=== PATIENT | female | born 1955 | race Caucasian/White ===

== ENCOUNTER 2021-12-11 08:49 | Day surgery (SDC) | payer MEDICARE, MEDICAID ==
[2021-12-11] VITALS (12 sets, daily range): BP systolic 111–129; BP diastolic 67–78; PULSE 73–92; TEMP 98.5
[~2021-12-11] VITALS: Ht 170.2 cm; Wt 93.2 kg
[~2021-12-11 08:49] MED LIST: ACID REDUCER200 MG PO; ADVIL200 MG PO; ALBUTEROL1.25 MG/3 IH; AMLODIPINE5 MG PO; ANTIVERT 12.512.5 MG PO; BACTROBAN 22GM22 GM NAS; BROVANA15 MCG/2 M IH; BUDEPRION XL150 MG PO; CELEXA40 MG PO; CHANTIX 0.5MG0.5 MG PO; CITALOPRAM40 MG PO; COMBIVENT INH14.7 GM IH; CRESTOR20 MG PO; DESYREL 100MG100 MG PO; EXCEDRIN BACK &1 TAB PO; EXCEDRIN1 TAB PO; FORTAMET1000 MG PO; GENTAMICIN180 MG/501 NS; GRALISE600 MG PO; HCTZ/TRIAMTEREN1 TA1 PO; IBUPROFEN200 M1 PO; IPRATROPIUM BROM3 M1 IH; JANUVIA100 MG PO; LANTUS100 U/ML SC; LASIX 40MG TABL40 MG PO; LASIX80 MG PO; LIPITOR 80MG80 MG PO; LORTAB 5/500 501 TAB PO; MAG-OX 400400 MG/TAB PO; MAXZIDE 50 MG-71 TAB PO; MECLIZINE12.5 MG PO; METFORMIN500 MG PO; MICRO-K 1010 MEQ PO; MOTRIN 200200 MG/TAB PO; NIASPAN 500MG500 MG PO; NIASPAN1000 MG PO; NORCO 325 MG-51 TAB PO; NORCO 325 MG-7.1 TAB PO; NOVOLOG 100U100 U/M1 SC; OMEGA 31000 MG PO; OMEPRAZOLE D/R20 MG PO; PHENERGAN W/CO120 ML PO; PLAVIX 75MG TAB75 MG PO; PRINZIDE 12.5 M1 TA1 PO; PROVENTIL0.09 MG/A1 IH; PULMICORT0.5 MG/2 M IH; PULMICORT90 MCG/Act IH; RT ALBUTER2.5 MG/0.5 IH; RT SPIRIVA18 MCG IH; SIMVASTATIN80 MG PO; SINGULAIR10 MG PO; SPIRIVA HANDIH18 MCG IH; SUPER EPA 2002000 MG PO; THEO-DUR 3300 MG/TAB PO; THEOPHYLLINE E PO; THEOPHYLLINE300 M1 PO; TRAZADONE HYDR100 MG PO; TRICOR145 MG PO; VITAMIN D32000 IU PO; WELLBUTRIN SR150 M1 PO; WELLBUTRIN XL300 M1 PO; ZANTAC 150MG T150 MG PO; ZESTRIL 5MG5 MG PO; [UNRECOGNIZED DRUG - SUPPLY]
[2021-12-11 10:22] LABS: HEMATOCRIT 42.1 % (37.0-47.0); HEMOGLOBIN 14.4 g/dl (12.5-16.0); MEAN CELL VOLUME 89 fl (80.0-100.0); MEAN CORPUSCULAR HEMOGLOBIN 31 pg (27-31); MEAN CORPUSCULAR HGB CONC 34 g/dl (33.0-37.0); MEAN PLATELET VOLUME 11.3 fl (7.4-10.4); PLATELET COUNT 235 K/mm3 (130-400); RED BLOOD COUNT 4.72 M/mm3 (4.10-5.30); REDCELL DISTRIBUTION WIDTH-CV 12.9 % (11.5-14.5)
--- NOTE | 2021-12-11 10:26 | NUR ---
Initial visit; Patient and her daughters thanked [employer] for offering encouragement and prayer for Nessa prior to her surgical procedure.
[2021-12-11 11:27] LABS: PROTHROMBIN TIME 11.1 SECONDS (9.7-12.8)
[2021-12-11 11:30] LABS: PARTIAL THROMBOPLASTIN TIME 34.6 SECONDS (26.0-37.0)
[2021-12-11 11:33] LABS: CREATININE, serum 0.65 mg/dL (0.57-1.11); POTASSIUM 3.9 mmol/L (3.5-4.5)
--- NOTE | 2021-12-11 11:52 | NUR ---
SEE MEREJERRY FOR ALL MEDICATION ADMINISTRATION TIMES INTRA AND POST SEDATION ASSESSMENTS
--- NOTE | 2021-12-11 12:36 | NUR ---
Pt arrived from cardiac cath in bed, verbal report given at bedside; pt alert and oriented x4, reports mild pain to R wrist puncture site, RR even and unlabored but heavy which is pts baseline; R wrist with TR band, 14ml air per report, puncture site without s/s of bleeding, hematoma, all pulses present; to continue to reassess.
--- NOTE | 2021-12-11 15:08 | NUR ---
TR band to R wrist with 14ml air; 4mls of air removed from TR band, no s/s of bleeding or hematoma, pulses present.
--- NOTE | 2021-12-11 16:54 | NUR ---
3ml of air removed, 7mls remaining in TR band; R radial puncture site without s/s of bleeding or hematoma, pulses present.
--- NOTE | 2021-12-11 16:56 | NUR ---
4mls of air removed from TR band, no air remaining; R radial puncture site is CDI, without s/s of bleeding or hematoma, and all pulses present.
--- NOTE | 2021-12-11 16:57 | NUR ---
Deflated TR band removed from R radial wrist, cleaned and dressing with tegaderm and gauze/pressure dressing; education given to patient, daughter, and pt's sister regarding discharge instructions and teaching, all verbalized understanding; to escort to POV via wheelchair.
--- NOTE | 2021-12-11 17:07 | NUR ---
3ml of air removed from TR band, 4mls of air remaining; R radial puncture site CDI and without s/s of bleeding or hematoma, pulses present.
== END 2021-12-11 16:35 | disposition home or self-care (01) ==
LOC: COL.CAR 08:49
PROVIDERS: Internal Medicine Cardiovascular Disease
DX: R06.02 Shortness of breath (principal); F17.210 Nicotine dependence, cigarettes, uncomplicated
CPT/HCPCS: C1769; J1644; J2250; J3010; Q9967

== ENCOUNTER 2022-04-16 12:58 | Day surgery (SDC) | payer MEDICARE, MEDICAID ==
[~2022-04-16] VITALS: Ht 167.6 cm; Wt 81.3 kg
[~2022-04-16 12:58] MED LIST changes: -CRESTOR20 MG PO; +CRESTOR40 MG PO; +LASIX 20MG TABL20 MG PO; -LASIX 40MG TABL40 MG PO; +THEO-24 30300 MG/CAP PO; -THEO-DUR 3300 MG/TAB PO
[2022-04-16 14:17] VITALS: BP 107/60; PULSE 82; TEMP 97
[2022-04-16] MEDS ORDERED: ABILIFY 15MG TA15 MG PO (14:22)
[2022-04-16] MEDS ORDERED: TESSALON PERLE200 MG PO (14:23)
[2022-04-16] MEDS ORDERED: FIORICET 325 MG1 TA1 PO (14:24)
[2022-04-16] MEDS ORDERED: OSCAL 500 TAB500 MG PO (14:26)
[2022-04-16] MEDS ORDERED: CANA300T PO (14:26)
[2022-04-16] MEDS ORDERED: DALIRESP500 MCG PO ×2 (14:28→14:31)
[2022-04-16] MEDS ORDERED: TRULICITY1.5 MG/0.5 SQ (14:32)
[2022-04-16] MEDS ORDERED: HCTZ12.5TAB PO (14:34)
[2022-04-16] MEDS ORDERED: HUMULIN R500 UNIT/1 SQ (14:37)
[2022-04-16] MEDS ORDERED: PRIL40 PO (14:39)
[2022-04-16] MEDS ORDERED: LIVALO4 MG PO (14:41)
[2022-04-16] MEDS ORDERED: K-TAB20 PO (14:43)
[2022-04-16] MEDS ORDERED: PRALUENT P150 MG/1 M SQ (14:44)
[2022-04-16] MEDS ORDERED: LYRICA200 MG PO (14:45)
[2022-04-16] MEDS ORDERED: PULMICORT180 MCG/Ac IH (14:45)
[2022-04-16] MEDS ORDERED: VICTOZA6 MG/ML SQ (14:48)
[2022-04-16] MEDS ORDERED: NORCO 325 MG-51 TAB PO (15:32)
--- NOTE | 2022-04-16 15:49 | NUR ---
Patient's belongings brought over to PACU. Glasses that were on side table were placed into soft blue glasses case, labeled and placed into white patient's belonging bag. RT supplies also brought to PACU.
--- NOTE | 2022-04-16 17:42 | NUR ---
PT TO FLOOR VIA BED, SLEEPY, EASILY AROUSED, VSS, PT A&O X4, PT ABLE TO MAKE NEEDS KNOWN, CALL LIGHT IN REACH, FALL PRECAUTIONS IN PLACE, PT REPORTS NAUSEA AND PAIN TO ABDOMEN 5/10
[2022-04-16 17:54] VITALS: BP 124/56; PULSE 82
--- NOTE | 2022-04-16 19:30 | NUR ---
PATIENT IS ORIENTED BUT DROWSY. VSS. DAY SHIFT GAVE PAIN MEDS PRIOR TO SHIFT CHANGE AND SEEMS TO BE MANAGING HER PAIN. ABD LAP SITS X5 WITH GLUED CLOSURE. PCT AMBULATED PATIENT TO BATHROOM TO VOID, NOTED RIGHT LATER LAP SITE OOZING, COVERED SITES WITH BANDAIDS. DENIES C/O N/V AT THIS TIME. PATIENT TOLERATED PO INTAKE. FAMILY AT BEDSIDE INQUIRING ABOUT DISCHARGE THEY LIVE 45 MINUTES AWAY. PATIENT ALSO REPORTS HER PHARMACY WILL BE CLOSED, SEE ORDERS FOR TAKE HOME PACK. DC'D RIGHT FORARM IV AND COVERED SITE WITH GAUZE & COBAN. PATIENT GETTING DRESSED.
[2022-04-16 20:16] VITALS: BP 121/69; PULSE 87; TEMP 98.1
--- NOTE | 2022-04-16 20:40 | NUR ---
PATIENT GIVEN DISCHARGE INSTRUCTIONS, E-SCRIPT SENT, [facility] TAKE HOME PACK SENT, AND DISCUSSED F/U APT. ANSWERED QUESTIONS/CONCERNS. PATIENT IS DRESSED, PACKED AND ESCORTED OUT VIA WC TO PERSONAL VEHICLE WITH FAMILY.
== END 2022-04-16 20:40 | disposition home or self-care (01) ==
LOC: SDCO 12:58
DX: K80.10 Calculus of gallbladder with chronic cholecystitis without obstruction (principal); K66.0 Peritoneal adhesions (postprocedural) (postinfection); F17.210 Nicotine dependence, cigarettes, uncomplicated; Z99.81 Dependence on supplemental oxygen; J44.9 Chronic obstructive pulmonary disease, unspecified; Z79.899 Other long term (current) drug therapy; K21.9 Gastro-esophageal reflux disease without esophagitis; I10 Essential (primary) hypertension; E11.9 Type 2 diabetes mellitus without complications; Z79.84 Long term (current) use of oral hypoglycemic drugs; Z79.4 Long term (current) use of insulin
CPT/HCPCS: J0690; J1100; J1885; J2405; J2704; J3010; J7030